=== PATIENT | female | born 1960 | race Hispanic/Latino ===

== ENCOUNTER 2025-09-17 05:55 | Day surgery (SDC) | payer OTHER ==
[2025-09-17] VITALS (11 sets, daily range): BP systolic 112–167; BP diastolic 50–94; PULSE 75–91; RESP 14–16; TEMP 97.2–98.6
[~2025-09-17] VITALS: Ht 162.6 cm; Wt 110.7 kg
[~2025-09-17 05:55] MED LIST: CHOL100046 PO; DOCU100C33 PO; ESCI20TA38 PO; LEVO175C3 PO; LOSA25TA41 PO
[2025-09-17] MEDS: 0.9%NACL 1000ML 1,000 ML IV ONE (06:56)
[2025-09-17] MEDS ORDERED: SIMETHICONE 40 MG/0.6 ML ML ONE (08:17)
== END 2025-09-17 09:30 | disposition home or self-care (01) ==
LOC: DAH 05:55 → ENDO 05:55
PROVIDERS: ATTEND Internal Medicine Gastroenterology
DX: Z12.11 Encounter for screening for malignant neoplasm of colon (principal); K29.50 Unspecified chronic gastritis without bleeding; K21.00 Gastro-esophageal reflux disease with esophagitis, without bleeding; K44.9 Diaphragmatic hernia without obstruction or gangrene; R12 Heartburn; K31.89 Other diseases of stomach and duodenum; K76.0 Fatty (change of) liver, not elsewhere classified; E78.5 Hyperlipidemia, unspecified; E66.9 Obesity, unspecified; F32.A Depression, unspecified; Z90.49 Acquired absence of other specified parts of digestive tract; Z82.49 Family history of ischemic heart disease and other diseases of the circulatory system; Z88.0 Allergy status to penicillin; Z98.890 Other specified postprocedural states
CPT/HCPCS: 43239; J7030; J2704; A4620; G0121; A4215; A7002; 45378; J3490